=== PATIENT | female | born 1935 | race Hispanic/Latino ===

== ENCOUNTER 2017-12-24 11:21 | Emergency (ER) | payer MEDICARE ==
[2017-12-24 11:36] VITALS: BMI 27.3
--- NOTE | 2017-12-24 11:36 | ED PDOC ---
Arrival/HPI - General Time Seen by Provider: 12/24/17 11:23 Historian: Patient, Other (PMD) - History of Present Illness Narrative History of Present Illness (Text): 12/24/17 11:22 82 year old female, with a past medical history of Alzheimer's disease and Congestive Heart Failure, sent into the emergency department by PMD for midsternal chest discomfort since this morning. Patient describes the pain as non-radiating pressure. She reports mild nausea but denies any fever, chills, vomiting, diarrhea, urinary symptoms, abdominal pain, shortness of breath, lightheadedness, dizziness or other complaints. PMD: Dr. Alvaro Aguilar Time/Duration: Other (This morning) Symptom Course: Unchanged Quality: Pressure Context: Home Past Medical History - Provider Review Nursing Documentation Reviewed: Yes Family/Social History - Physician Review Nursing Documentation Reviewed: Yes Family/Social History: Unknown Family HX Allergies/Home Meds Allergies/Adverse Reactions: Allergies Penicillins Allergy (Verified 12/24/17 11:37) RASH Home Medications: Home Meds Medication Instructions Recorded Confirmed No Known Home Med 12/24/17 12/24/17 Review of Systems - Physician Review All systems were reviewed & negative as marked: Yes - Review of Systems Constitutional: absent: Fevers, Night Sweats Respiratory: absent: SOB Cardiovascular: Chest Pain Gastrointestinal: Nausea. absent: Abdominal Pain, Diarrhea, Vomiting Genitourinary Female: absent: Dysuria, Frequency, Hematuria, Urine Output Changes Neurological: absent: Dizziness Physical Exam Vital Signs Reviewed: Yes Vital Signs Temp Pulse Resp BP Pulse Ox 12/24/17 11:37 97.6 F 76 20 162/78 H 99 Temperature: Afebrile Blood Pressure: Hypertensive Pulse: Regular Respiratory Rate: Normal Appearance: Positive for: Comfortable, Unkept, Other (foul odor) Pain Distress: None Mental Status: Positive for: Alert and Oriented X 3 - Systems Exam Head: Present: Atraumatic, Normocephalic Pupils: Present: PERRL Extroacular Muscles: Present: EOMI Conjunctiva: Present: Normal Mouth: Present: Moist Mucous Membranes Neck: Present: Normal Range of Motion Respiratory/Chest: Present: Clear to Auscultation, Good Air Exchange. No: Respiratory Distress, Accessory Muscle Use Cardiovascular: Present: Regular Rate and Rhythm, Normal S1, S2. No: Murmurs Abdomen: Present: Normal Bowel Sounds. No: Tenderness, Distention, Peritoneal Signs Back: Present: Normal Inspection Upper Extremity: Present: Normal Inspection. No: Cyanosis, Edema Lower Extremity: Present: Edema (Right lower extremity edema), NORMAL PULSES. No: CALF TENDERNESS Neurological: Present: GCS=15, CN II-XII Intact, Speech Normal Skin: Present: Warm, Dry, Normal Color. No: Rashes Psychiatric: Present: Alert, Oriented x 3, Normal Insight, Normal Concentration Medical Decision Making ED Course and Treatment: 12/24/17 11:39 Impression: 82 year old female with chest pain Differential Diagnoses: Chest pain rule out acute coronary syndrome vs PE Plan: -- Chest CT -- Chest xray -- Duplex lower extremity ultrasound -- EKG -- Labs -- Urinalysis -- Tylenol -- Reassess and disposition Progress Notes: 12/24/17 11:50 EKG shows sinus arrhythmia at 83 BPM with PVCs, Q-waves in leads III and AvF, no ST-segment elevations. Interpreted by me. Report Date : 12/24/2017 12:23:17 Procedure: Chest xray Dictator : Mariusz Nj MD IMPRESSION: No active disease. 12/24/17 14:06 Labs reviewed. Dimer mildly elevated. LE sono r/o DVT and CT Angio Chest ordered to r/o PE. Patient refused to have the studies done. I discussed the importance of care to her and her . I gave them time to think about getting the studies to determine medical care and they both insisted she did not want them. Her is assisting in decision making because patient has mild dementia. She is AAOx3 and is answer my questions appropriately. She is repeating what I'm saying and says she just doesn't want to stay in the hospital. agrees that she will not stay. The patient is choosing to leave against medical advice. I have personally explained to the patient and that choosing to do so may result in permanent bodily harm or . I have discussed at great length that without further evaluation and monitoring there may be unforeseen circumstances and/or deterioration causing permanent bodily harm or as a result of their choice. The patient is alert, oriented, and shows the mental capacity to make clear decisions regarding the patients health care at this time. The patient continues to wish to leave against medical advice. In light of the patients decision to leave against medical advice, follow-up has been arranged and the patient is aware of the importance to following up as instructed. The patient has been advised that they should return to the emergency room immediately if they change their mind at any time, or if their condition begins to change or worsen in any way. - Lab Interpretations Lab Results: 12/24/17 12:20 12/24/17 12:20 Lab Results 12/24/17 12:20: D-Dimer, Quantitative 301 H 12/24/17 12:20: Sodium 142, Potassium 3.6, Chloride 98, Carbon Dioxide 31, Anion Gap 17, BUN 15, Creatinine 0.7, Est GFR ( Amer) > 60, Est GFR (Non- Af Amer) > 60, Random Glucose 99, Calcium 9.2, Magnesium 1.7, Lactate Dehydrogenase 514, Total Creatine Kinase 46, Troponin I < 0.01, NT-Pro-B Natriuret Pep 1490 H 12/24/17 12:20: WBC 6.6, RBC 4.98, Hgb 14.3, Hct 43.2, MCV 86.7, MCH 28.7, MCHC 33.1, RDW 14.3, Plt Count 167, MPV 9.8, Gran % 78.4 H, Lymph % (Auto) 14.8 L, [place] % (Auto) 6.1 H, Eos % (Auto) 0.5 L, Baso % (Auto) 0.2, Gran # 5.16, Lymph # (Auto) 1.0 L, [place] # (Auto) 0.4, Eos # (Auto) 0.0, Baso # (Auto) 0.01 I have reviewed the lab results: Yes - RAD Interpretation Radiology Orders: 12/24/17 11:46 CHEST PORTABLE [RAD] Stat 12/24/17 13:15 DUPLEX LOWER EXTRM VEIN BILAT [US] Stat - Medication Orders Current Medication Orders: Discontinued Medications Acetaminophen (Tylenol 325mg Tab) 325 mg PO STAT STA Stop: 12/24/17 11:46 Last Admin: 12/24/17 12:21 Dose: 325 mg MAR Pain/Vitals Document 12/24/17 12:21 (Rec: 12/24/17 12:21 [facility]-[id number]) Pain Reassessment Is This A Pain ReAssessment? No Sleep Is patient sleeping during reassessment? No Presence of Pain Presence of Pain Yes Pain Scale Used Pain Scale Used Numeric - Scribe Statement The provider has reviewed the documentation as recorded by the Herve Evans training under Tessy Larry All medical record entries made by the Scribe were at my direction and personally dictated by me. I have reviewed the chart and agree that the record accurately reflects my personal performance of the history, physical exam, medical decision making, and the department course for this patient. I have also personally directed, reviewed, and agree with the discharge instructions and disposition. Disposition/Present on Arrival - Present on Arrival Any Indicators Present on Arrival: No - Disposition Have Diagnosis and Disposition been Completed?: Yes Diagnosis: Chest pain Disposition: AGAINST MEDICAL ADVICE Disposition Time: 15:00 Patient Problems: Current Active Problems Problem Status Onset Chest pain Acute Condition: FAIR Discharge Instructions (ExitCare): Chest Pain, Chest Pain (ED) Additional Instructions: WILI DOYLE, thank you for letting us take care of you today. Your provider was Kristopher Mann DO and you were treated for CHEST PAIN. The emergency medical care you received today was directed at your acute symptoms. If you were prescribed any medication, please fill it and take as directed. It may take several days for your symptoms to resolve. Return to the Emergency Department if your symptoms worsen, do not improve, or if you have any other problems. Please contact your doctor or call one of the physicians/clinics you have been referred to that are listed on the Patient Visit Information form that is included in your discharge packet. Bring any paperwork you were given at discharge with you along with any medications you are taking to your follow up visit. Our treatment cannot replace ongoing medical care by a primary care provider outside of the emergency department. Thank you for allowing the [facility] team to be part of your care today. If you had an X-Ray or CT scan: A Radiologist will review the ED reading if any change in treatment is needed we will contact you. If you had a blood, urine, or wound culture: It will take several days for the results, if any change in treatment is needed we will contact you. If you had an STI test: It will take 48 hours for the results. Please call after 1 week if you have not heard back. Referrals: Alvaro Aguilar JD, MD [Family Provider] - Follow up with primary Forms: [employer] ([place])
[2017-12-24 11:38] VITALS: O2SAT 99
--- NOTE | 2017-12-24 12:24 | RAD ---
Date of service: 12/24/2017 HISTORY: chest pain COMPARISON: No prior. FINDINGS: LUNGS: No active pulmonary disease. PLEURA: No significant pleural effusion identified, no pneumothorax apparent. CARDIOVASCULAR: Normal. OSSEOUS STRUCTURES: No significant abnormalities. VISUALIZED UPPER ABDOMEN: Normal. OTHER FINDINGS: None. IMPRESSION: No active disease.
[2017-12-24 12:40] LABS: BASO # 0.01 K/mm3 (0.0-2.0); BASO % 0.2 % (0.0-3.0); EOS % 0.5 % (1.5-5.0); GRAN # 5.16 (1.4-6.5); GRAN % 78.4 % (50.0-68.0); HEMOGLOBIN 14.3 g/dL (12.0-16.0); LYMPH % 14.8 % (22.0-35.0); MEAN CELL VOLUME 86.7 fl (80.0-105.0); MEAN CORPUSCULAR HEMOGLOBIN 28.7 pg (25.0-35.0); MEAN CORPUSCULAR HGB CONC 33.1 g/dl (31.0-37.0); MEAN PLATELET VOLUME 9.8 fl (7.0-11.0); MONO # 0.4 (0.1-0.6); MONO % 6.1 % (1.0-6.0); RBC 4.98 10^6/uL (3.5-6.1); RED CELL DISTRIBUTION WIDTH 14.3 % (11.5-14.5); WHITE BLOOD COUNT 6.6 10^3/ul (4.5-11.0)
[2017-12-24 12:45] LABS: BLOOD UREA NITROGEN 15 mg/dL (7-21); CALCIUM 9.2 mg/dL (8.4-10.5); GFR AFRICAN-AMERICAN > 60; GFR NON-AFRICAN AMERICAN > 60
[2017-12-24 12:56] LABS: B-TYPE NATRIURETIC PEPTIDE 1490 pg/mL (0-450); TROPONIN I < 0.01 ng/mL
[2017-12-24] MEDS ORDERED: Iohexol 350 MG/100 ML VIAL ONE (13:23)
[2017-12-24 16:44] VITALS: BP 158/80; PULSE 82; RESP 16; TEMP 97.9
--- NOTE | 2017-12-24 19:22 | CARD ---
APPROVED REPORT Date of service: 12/24/2017 EKG Measurement Heart [id number] <Conclusion> Sinus rhythm with marked sinus arrhythmia with occasional premature ventricular complexes Inferior infarct, age undetermined Abnormal ECG
== END 2017-12-24 16:00 | disposition left against medical advice (07) ==
LOC: ED 11:21
DX: R07.9 Chest pain, unspecified (principal); I50.9 Heart failure, unspecified; F02.80 Dementia in other diseases classified elsewhere, unspecified severity, without behavioral disturbance, psychotic disturbance, mood disturbance, and anxiety; G30.9 Alzheimer's disease, unspecified